=== PATIENT | female | born 1960 | race Caucasian/White ===

== ENCOUNTER → 2020-11-28 10:35 | Outpatient (CLI) | payer OTHER, SELFPAY ==
[2020-11-30 14:12] LABS: Thyroid Peroxidase Antibodies <9 IU/mL (0-34)
[2020-12-01 10:32] LABS: Free T4, Direct Thyroxine 1.26 ng/dL (0.78-2.19)
[2020-12-09 06:59] LABS: Triiodothyronine T3 Reverse 16.8 ng/dL (9.2-24.1)
== END ==
PROVIDERS: PCP Family Medicine; Visit Provider Family Medicine
DX: E03.9 Hypothyroidism, unspecified (principal)
CPT/HCPCS: 84439; 84443; 84481; 84482; 86376; 86800

== ENCOUNTER → 2022-03-02 12:30 | Outpatient (CLI) | payer OTHER, SELFPAY ==
[2022-03-05 07:33] LABS: Candida species Negative (Negative); Gardnerella vaginalis Negative (Negative); Trichomoas vaginalis Negative (Negative)
== END ==
PROVIDERS: PCP Family Medicine; Visit Provider Physician Assistant
DX: N89.8 Other specified noninflammatory disorders of vagina (principal); Z12.4 Encounter for screening for malignant neoplasm of cervix
CPT/HCPCS: 87480; 87510; 87660

== ENCOUNTER → 2022-03-15 11:40 | Outpatient (CLI) | payer OTHER, SELFPAY ==
[2022-03-15 20:11] LABS: Add Manual Diff / Slide Review NO; Basophils Absolute Auto 100 /uL (0-100); Basophils Percent Auto 1.2 % (0-2); Eosinophils Absolute Auto 200 /uL (0-450); Eosinophils Percent Auto 3.3 % (2-4); Hematocrit 40.9 % (36-46); Hemoglobin 13.5 g/dL (12.0-16.0); Lymphocytes Absolute Auto 1600 /uL (1100-4500); Lymphocytes Percent Auto 33.2 % (25-40); Mean Corpuscular Hemoglobin 29.1 PG (26-34); Mean Corpuscular Volume 88.4 fL (80-100); Monocytes Absolute Auto 400 /uL (0-900); Neutrophils Absolute Auto 2600 /uL (1500-7000); Neutrophils Percent Auto 54.3 % (50-75); Platelet Count 280 X10^3/uL (150-400); Red Blood Cell Count 4.63 X10^6/uL (4.0-5.2); Red Cell Distribution Width 14.2 % (11.6-14.8); White Blood Cell Count 4.8 X10^3/uL (4.5-11.0)
[2022-03-15 20:22] LABS: Hemoglobin A1C% w Est Avg Glu 5.6 % (4.0-6.0)
[2022-03-15 20:48] LABS: Alanine Aminotransferase 19 IU/L (<35); Albumin Globulin Ratio 1.5 (1.0-2.8); Alkaline Phosphatase 89 U/L (38-126); Aspartate Aminotransferase 21 IU/L (14-36); BUN Creatinine Ratio 19.5 (6-22); Bilirubin Total 0.4 mg/dL (0.2-1.3); Blood Urea Nitrogen 17 mg/dL (7-17); Carbon Dioxide 22 mmol/L (22-32); Chloride 108 mmol/L (98-107); Cholesterol 217 mg/dL (140-199); Estimated Glomerular Filt Rate > 60 mL/min (>60); Globulin 2.7 g/dL (1.7-4.1); Glucose 96 mg/dL (80-110); HDL Cholesterol 52 mg/dL (40-60); HEMOLYSIS < 15 (0-50); LDL Cholesterol Calculated 144 mg/dL (<100); Potassium 4.3 mmol/L (3.4-5.1); Sodium 140 mmol/L (137-145); Total Protein 6.7 g/dL (6.3-8.2); Triglycerides 104 mg/dL (35-150)
[2022-03-15 21:41] LABS: TSH w/ Reflex to FT4 2.18 uIU/mL (0.47-4.68)
[2022-03-17 07:24] LABS: Thyroid Peroxidase Antibodies 11 IU/mL (0-34)
[2022-03-17 18:38] LABS: Anti Thyroglobulin Antibody <1.0 IU/mL (0.0-0.9)
== END ==
PROVIDERS: PCP Family Medicine; Visit Provider Physician Assistant
DX: R63.5 Abnormal weight gain (principal); Z01.419 Encounter for gynecological examination (general) (routine) without abnormal findings; Z13.1 Encounter for screening for diabetes mellitus; Z13.220 Encounter for screening for lipoid disorders
CPT/HCPCS: 80053; 80061; 83036; 84439; 84443; 85025; 86376; 86800

== ENCOUNTER → 2022-07-30 13:27 | Outpatient (CLI) | payer OTHER, SELFPAY ==
--- NOTE | 2022-07-30 14:03 | DIET.CONS ---
Dietary Consultation Note Pt in her home, RD in hospital office, pt agrees to telehealth video visit using [employer] tasneem. Assessment: 62y F attending RD visit for help with menopause related weight gain. Pt reports struggling with weight since age 13. Pt often gains 2-3# per year. Pt has lost significant weight 3x in life (20-30# each time). Pt did calorie counting the first time, second time did amylose free diet (minus most grains, tubers, sugar), was working with Functional Medicine doctor who had her count calories (1500-1600kcals) which is below basal energy needs. Worked on Metabolic Reset but unwilling to eat high kcal and super low kcal. Was trying to do intermittent fasting. Avoiding gluten. 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 Usual Day: Two meals per day: L: Sprouted wheat bagel with butter c lox and dill mustard and inch wide slice brie D: 2 chicken drumsticks with quinoa pilaf, asparagus, cranberry and shiitake mushrooms 10 mini cookies (coconut and dark chocolate) pt states she doesn't drink enough water but carries it around- adds ACV to it. 16-32oz water and 12oz mug latte or justyn latte- A2 whole milk Ht: 5'6 Wt: 232# (105kg) BMI: 37.4 RD Impression: Pt with hx yoyo dieting, no intentional physical activity- veda weight training and ongoing increase in body weight. Pt consuming 2 meals plus snack most days, inadequate fluid intake and moderate stress reported. Pt would benefit from stable, nourishing diet with 75-120g CHO daily, 32-64oz water, and strength training 20-30 min 2-3x/w to fuel body. Pt may benefit from trial of weight loss med Wegovy to help launch the first 5-10% of weight loss. Pt states she would be motivated by seeing the scale go down a little. Nutrition Diagnosis: abnormal weight gain r/t metabolism of menopause aeb pt with slow increase in weight over 5y, BMI 37.4, pt eating within EER but not seeing weight loss. Interventions: 1. Educated pt on avoiding fad diets now and in future. Discussed metabolism of menopause with importance of fluids, low to moderate high fiber carbs, and strength training to support LBM and metabolism. Reiterated pts current pattern of 2 meals and 1 snack daily. Provided appropriate resources for strength training. 2. Consider Wegovy Rx from PCP to spur weight loss in order to motivate pt to continue work and take some stress off joints to support efforts at exercise. EER: 30-45g carbs meals, 15-30g snack Monitoring/Evaluations: f/u prn Electronically Signed by: Britany Monroe 07/30/22 14:03 Clinical Dietitian [address] [id number]
[2022-07-30 14:09] VITALS: BMI 37.4
== END ==
PROVIDERS: PCP Family Medicine; Referring Provider Obstetrics & Gynecology; Visit Provider Obstetrics & Gynecology
DX: R63.5 Abnormal weight gain (principal); Z78.0 Asymptomatic menopausal state; Z71.3 Dietary counseling and surveillance; Z68.37 Body mass index [BMI] 37.0-37.9, adult
CPT/HCPCS: 97802